=== PATIENT | male | born 1945 | race Caucasian/White ===

== ENCOUNTER → 2016-11-03 | Outpatient (CLI) | payer MEDICARE, BC ==
[2016-11-03 09:29] LABS: CHLORIDE,CL 108 mmol/L (98-110); SODIUM,NA 143 mmol/L (136-146)
== END ==
LOC: MW.CHFP 08:44
PROVIDERS: ATTEND Family Medicine
DX: I10 Essential (primary) hypertension (principal); D50.9 Iron deficiency anemia, unspecified; I50.9 Heart failure, unspecified; M79.669 Pain in unspecified lower leg
CPT/HCPCS: 36415; 80048; 82550; 83540; 83735; 85027; G0463

== ENCOUNTER → 2016-11-06 | Outpatient (CLI) | payer MEDICARE, BC ==
--- NOTE | 2016-11-09 10:30 | US ---
EXAMINATION: YORDY HISTORY: Peripheral vascular disease COMPARISON: None TECHNIQUE: Pressures obtained in the upper and lower extremities bilaterally. FINDINGS/IMPRESSION: The left YORDY is normal and greater than 1. The right YORDY is normal and greater than 1.
== END ==
LOC: MW.US 12:48
PROVIDERS: ATTEND Family Medicine
DX: I73.9 Peripheral vascular disease, unspecified (principal)
CPT/HCPCS: 93922; 93922-26

== ENCOUNTER 2021-03-22 09:06 | Inpatient (IN) | payer MEDICARE, BC ==
[2021-03-22] MEDS ORDERED: Lactated Ringers 1,000 ML IV ONE (09:54)
[2021-03-22] MEDS ORDERED: Morphine 4 MG/ML Syringe IVPUSH ONE (09:54)
[2021-03-22 10:05] LABS: CARBON DIOXIDE,CO2 28.7 mmol/L (21.0-32.0)
--- NOTE | 2021-03-22 10:25 | PCM.EKG ---
#1 Interpretation EKG Date: 03/22/21 Time: 10:03 Rhythm: NSR Rate (Beats/Min): 80 Pierce: Normal P-Wave: Present QRS: Normal ST-T: Normal QT: Prolonged (531) Comparison: No Change (12/19/15) EKG Interpretation Comments: Sinus Rhythm with prolong QT
--- NOTE | 2021-03-22 11:07 | CT ---
Indication: Abdominal pain. Comparison: None available. Technique: CT of the abdomen and pelvis with intravenous contrast. Findings: There is a blind-ending structure surrounded by marked inflammation and fluid, with severe wall thickening and focal pneumatosis seen in the lower mid abdomen likely representing a severe potentially perforated appendicitis, with an 8 mm appendicolith. A drainable well confined abscesses not present. No bowel obstruction. 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 No portal venous gas. There is mosaic attenuation in the lung bases, relatively mild. Eventration of the left hemidiaphragm. The spleen is normal in size. Non cirrhotic morphology to the liver without a suspicious liver lesion. The gallbladder appears unremarkable. Motion limits evaluation overall but no obvious pancreatic abnormality. Atherosclerotic changes seen within the abdominal aorta. The proximal visceral arteries appear patent. Right renal cyst. No hydronephrosis in either kidney. The urinary bladder is grossly unremarkable. The prostate is mildly enlarged. There is mild asymmetry in the soft tissue involving the right seminal vesicle. No obvious pelvic sidewall lymphadenopathy. Multilevel advanced degenerative changes of the lumbar spine. Impression: 1. Acute severe appendicitis, likely complicated by focal perforation given the pneumatosis in the severely thickened wall the appendix and the surrounding fluid although no drainable abscess is seen. 2. 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 3. Prostate enlargement with asymmetry involving the right seminal vesicle. Correlate with PSA and consider KENNEDY in the non urgent setting. Please note that all CT scans at this facility use dose modulation, iterative reconstruction, and/or weight-based dosing when appropriate to reduce radiation dose to as low as reasonably achievable. Dictated by Sonny Bowers MD @ 03/22/2021 11:05:39 AM (Electronically Signed)
[2021-03-22] MEDS ORDERED: Piperacillin/Tazobactam 4.5 GM in Sodium Chloride 0.9% 100 ML IV ONE (11:13)
[2021-03-22] MEDS ORDERED: Lactated Ringers 1,000 ML IV SCH ×3 (11:15→19:00)
[2021-03-22] MEDS ORDERED: Bupivacaine 0.5% 30 ML SDV ONE (12:35)
[2021-03-22] MEDS ORDERED: Octyl 2-Cyanoacrylate 1 Tube ONE (12:35)
[2021-03-22] MEDS ORDERED: Rocuronium Bromide 50 MG/5 ML Syringe ONE ×2 (12:36→14:40)
[2021-03-22] MEDS ORDERED: Lidocaine 2% 5 ML SDV ONE (12:36)
[2021-03-22] MEDS ORDERED: Sugammadex Sodium 200 MG/2 ML VIAL ONE (12:36)
[2021-03-22] MEDS ORDERED: fentaNYL 100 MCG/2 ML SDV ONE ×2 (12:36→14:14)
[2021-03-22] MEDS ORDERED: Propofol 200 MG/20 ML SDV ONE (12:36)
[2021-03-22] MEDS ORDERED: Dexamethasone 4 MG/ML 5 ML MDV ONE (12:36)
[2021-03-22] MEDS ORDERED: Ondansetron 4 MG/2 ML SDV ONE (12:36)
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
[2021-03-22] MEDS ORDERED: ePHEDrine 50 MG/ML SDV ONE (13:57)
[2021-03-22] MEDS ORDERED: Sodium Chloride 0.9% 20 ML ONE (13:58)
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
[2021-03-22] MEDS ORDERED: Morphine 2 MG/ML SYRINGE IVPUSH PRN (14:28)
[2021-03-22] MEDS ORDERED: Ondansetron 4 MG/2 ML SDV IVPUSH PRN ×2 (14:28→15:45)
[2021-03-22] MEDS ORDERED: HYDROmorphone 1 MG/ML Syringe IVPUSH PRN ×2 (14:28→15:45)
[2021-03-22] MEDS ORDERED: Albuterol 0.083% 2.5 MG/3 ML Neb Soln NEB PRN (14:28)
[2021-03-22] MEDS ORDERED: Metoclopramide 10 MG/2 ML SDV IVPUSH PRN (14:28)
[2021-03-22] MEDS ORDERED: Naloxone 0.4 MG/ML SDV IVPUSH PRN (14:28)
[2021-03-22] MEDS ORDERED: fentaNYL 100 MCG/2 ML SDV IVPUSH PRN (14:28)
--- NOTE | 2021-03-22 15:45 | PCM.OPNOTE ---
- General Post-Op/Procedure Note Date of Surgery/Procedure: 03/22/21 Operative Procedure(s): Laparoscopic appendectomy Findings: Contained perforated appendix dictation number [id number] Pre Op Diagnosis: Perforated appendicitis Post-Op Diagnosis: Contained perforated appendix Primary Surgeon: Ryan Busby Pathology: appendix EBL in mLs: 10 Complications: None Condition: Fair
[2021-03-22] MEDS ORDERED: Piperacillin/Tazobactam 2.25 GM in Sodium Chloride 0.9% 50 ML IV SCH (16:00)
[2021-03-22] MEDS ORDERED: Acetaminophen 1,000 MG in Premix Bag 1 BAG IV SCH (16:00)
--- NOTE | 2021-03-22 16:01 | PCM.POSTAN ---
POST ANESTHESIA ASSESSMENT - MENTAL STATUS Mental Status: Alert, Oriented - VITAL SIGNS Vital Signs: Last Vital Signs Temp 98.6 F 03/22/21 15:45 Pulse 66 03/22/21 15:51 Resp 15 03/22/21 15:51 BP 115/59 L 03/22/21 15:51 Pulse Ox 94 L 03/22/21 15:51 - RESPIRATORY Respiratory Status: Respiratory Rate WNL, Airway Patent, O2 Saturation Stable, Supplemental Oxygen - CARDIOVASCULAR CV Status: Pulse Rate WNL, Blood Pressure Stable - GASTROINTESTINAL GI Status: No Symptoms - PAIN Pain Score: 0 - POST OP HYDRATION Hydration Status: Adequate & Stable
--- NOTE | 2021-03-22 16:09 | PCM48HPAN ---
Post Anesthesia Note - EVALUATION WITHIN 48HRS OF ANESTHETIC Vital Signs in Normal Range: Yes Patient Participated in Evaluation: Yes Respiratory Function Stable: Yes Airway Patent: Yes Cardiovascular Function Stable: Yes Hydration Status Stable: Yes Pain Control Satisfactory: Yes Nausea and Vomiting Control Satisfactory: Yes Mental Status Recovered: Yes Vital Signs: Last Vital Signs Temp 98.6 F 03/22/21 15:45 Pulse 73 03/22/21 16:05 Resp 18 03/22/21 16:05 BP 121/67 03/22/21 16:05 Pulse Ox 95 03/22/21 16:05
--- NOTE | 2021-03-22 17:43 | EDM.PDOC ---
ED HPI GENERAL MEDICAL PROBLEM - General Chief Complaint: Abdominal Pain Stated Complaint: PAIN IN STOMACH X4 DAYS/CANT EAT ANYTHING SOLID Time Seen by Provider: 03/22/21 09:46 - History of Present Illness INITIAL COMMENTS - FREE TEXT/NARRATIVE: CHIEF COMPLAINT(S): Abdominal pain HISTORY OF PRESENT ILLNESS: This is a 75-year-old man with a past medical history of hypertension, BPH, hyperlipidemia, CHF who comes to the emergency department with a chief complaint of abdominal pain. The patient states that for approximately 3 days now he has been experiencing abdominal pain which he describes as around his bellybutton. He states that it has not really sharp or really dull is just medium pain. He currently rates his pain as 10 out of 10 without any radiation. He denies any nausea, vomiting, diarrhea, hematochezia, melena, hematemesis or bilious emesis. He states that he took aspirin and Tylenol which initially helped but has not helped since then. He denies any fevers or chills. He states that the pain is worsening when he goes from a sitting to a standing position and denies any relieving factors. He denies any chest pain, shortness of breath. REVIEW OF SYSTEMS: Constitutional: Denies fever, chills. Eyes: Denies eye pain Ears, Nose, Mouth, & Throat: Denies earache Cardiovascular: Denies chest pain Respiratory: Denies shortness of breath Gastrointestinal: Positive for abdominal pain. Denies Nausea, vomiting, diarrhea, hematochezia. Genitourinary: Denies hematuria Skin:Denies a rash MSK: Denies joint pain Neurological: Denies blurred vision Psychiatric: Denies depression PAST MEDICAL HISTORY: As per history of present illness and as reviewed below otherwise noncontributory. SURGICAL HISTORY: As per history of present illness and as reviewed below otherwise noncontributory. SOCIAL HISTORY: As per history of present illness and as reviewed below otherwise noncontributory. FAMILY HISTORY: As per history of present illness and as reviewed below otherwise noncontributory. EXAMINATION OF ORGAN SYSTEMS/BODY AREAS: Constitutional: Blood pressure is 151/76, heart rate 90, respiratory rate 18 with an oxygen saturation of 94% on room air. Temperature 36.7 General: Elderly man who is in no acute distress Psychiatric: Appropriate mood and affect. Eyes: No scleral icterus or conjunctival erythema ENMT: Moist mucous membranes. No pharyngeal erythema Cardiovascular: Regular, rate, and rhythm. No gallops, murmurs, or rubs. Bilateral upper extremity pulses symmetric and intact. No peripheral edema. No JVD. Respiratory: Lungs clear to auscultation bilaterally. No wheezes, rales, or rhonchi. Gastrointestinal: Soft, diffusely tender to palpation, nondistended. No rebound or guarding. Negative Chavarria's and McBurney's. Normoactive bowel sounds Genitourinary: No suprapubic tenderness Musculoskeletal: Normal range of motion. Skin: No lesions or abrasions. Neurological: Alert, GCS 15 MEDICAL DECISION MAKING AND COURSE IN THE ED WITH INTERPRETATION/REVIEW OF DIAGNOSTIC STUDIES: This is a 75-year-old man with a past medical history of hypertension, BPH, hyperlipidemia and CHF who comes to the emergency department with acute abdominal pain who has normal otherwise vital signs. At this time we will provide the patient with 1 L of lactated Ringer's bolus, 4 mg of IV morphine and obtain a CT abdomen pelvis with contrast for further evaluation. Will obtain labs including CBC, CMP, Covid, lipase, magnesium, troponin, BNP and an EKG. We will place patient on cardiac monitoring and pulse oximetry. Differential includes gastroenteritis, appendicitis, diverticulitis, pancreatitis. Laboratory: CBC reveals a leukocytosis of 15.09 with neutrophilic predominance without any left shift. Thrombocytopenia at 142. CMP is unremarkable except for mild elevation in bilirubin at 2.9. Lipase is normal. Troponin is negative. BNP is normal. Covid is negative. After labs given the leukocytosis I did order blood cultures, lactic acid. At this time we do not have a specific diagnosis therefore we will hold off on antibiotics at this time. We will hold off on 30 cc/kg at this time as the patient does not meet severe sepsis criteria and his blood pressure is normal. We will reevaluate after lactic acid. The radiological images were viewed by myself along with reading the report from the radiologist. CT abdomen pelvis with contrast reveals an acute severe appendicitis likely complicated by focal perforation given the pneumatosis in the severely thickened wall of the appendix and the surrounding fluid. No drainable abscess seen. 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 After imaging the patient's laboratory analysis had resulted and his lactic acid is normal. At this time no further fluid administration will be provided. We will start the patient on Zosyn given the perforated appendicitis. I contacted Dr. Busby who stated that he would come and evaluate the patient. I did discuss the results with the patient. He was amenable to evaluation by surgeon for definitive management. Dr. Busby did come and evaluate the patient and the patient will be admitted to the hospital and will be taken to the operating room. DISPOSITION: Patient was admitted to the hospital in stable condition CONDITION: Serious PROCEDURES: None FINAL IMPRESSION(S)/DIAGNOSES: 1. Acute perforated appendicitis Randell Vail M.D. lower abdomen Pain Score (Numeric/FACES): 10 - Related Data Allergies Allergy/AdvReac Type Severity Reaction Status Date / Time No Known Allergies Allergy Verified 03/22/21 09:25 Home Meds: Home Meds Furosemide [Lasix] 40 mg PO DAILY 10/16/13 [History] Potassium Chloride 10 meq PO DAILY 10/16/13 [History] Tamsulosin [Flomax] 0.4 mg PO DAILY 10/16/13 [History] Finasteride 5 mg PO DAILY 09/09/15 [History] Aspirin [[place] Aspirin] 81 mg PO DAILY 02/17/16 [History] Losartan Potassium 25 mg PO DAILY 03/22/21 [History] atorvaSTATin [Lipitor] 20 mg PO DAILY 03/22/21 [History] Past Medical History HEENT History: Reports: Impaired Vision Other HEENT History: wears glasses Cardiovascular History: Reports: CAD, Heart Failure, High Cholesterol, Hypertension Other Cardiovascular History: states had chest pain for 2 weeks after a stress test, not since Respiratory History: Reports: Asthma Other Respiratory History: walk a mile 5 days per week Gastrointestinal History: Reports: Colon Polyp, Helicobacter Pylori Other Gastrointestinal History: hx gastric ulcer, Genitourinary History: Reports: BPH, Prostate Disorder Musculoskeletal History: Reports: Arthritis, Fracture Other Musculoskeletal History: injury to L shoulder in 1972, see HPI Neurological History: Reports: None Psychiatric History: Reports: None Endocrine/Metabolic History: Reports: Obesity/BMI 30+ Hematologic History: Reports: Anemia Other Hematologic History: new onset of anemia Immunologic History: Reports: None Oncologic (Cancer) History: Reports: None Other Oncologic History: hx tubular adenoma of colon Dermatologic History: Reports: None - Infectious Disease History Infectious Disease History: Reports: None - Past Surgical History Head Surgeries/Procedures: Reports: None HEENT Surgical History: Reports: None Cardiovascular Surgical History: Reports: None Respiratory Surgical History: Reports: None GI Surgical History: Reports: Colonoscopy, EGD, Hernia, Inguinal Male Surgical History: Reports: None Endocrine Surgical History: Reports: None Neurological Surgical History: Reports: None Musculoskeletal Surgical History: Reports: Shoulder Surgery Other Musculoskeletal Surgeries/Procedures:: ORIF right ankle and left clavicle fractures Oncologic Surgical History: Reports: None Social & Family History - Family History Family Medical History: No Pertinent Family History - Tobacco Use Tobacco Use Status *Q: Former Tobacco User Used Tobacco, but Quit: Yes Month/Year Tobacco Last Used: 1987 - Caffeine Use Caffeine Use: Reports: None - Recreational Drug Use Recreational Drug Use: No ED ROS GENERAL - Review of Systems Review Of Systems: See Below ED EXAM, GENERAL - Physical Exam Exam: See Below Course - Vital Signs Last Recorded V/S: Last Vital Signs Temp 36.6 C 03/22/21 17:30 Pulse 68 03/22/21 19:00 Resp 18 03/22/21 19:00 BP 144/88 H 03/22/21 19:00 Pulse Ox 96 03/22/21 19:00 - Orders/Labs/Meds Orders: Active Orders 24 hr Category Date Time Status Admission Status [Patient Status] [ADT] Stat ADT 03/22/21 12:19 Active CULTURE BLOOD [BC] Stat Lab 03/22/21 11:30 Received CULTURE BLOOD [BC] Stat Lab 03/22/21 12:30 Results Lactated Ringers [Ringers, Lactated] 1,000 ml Med 03/22/21 11:15 Active IV ASDIRECTED Blood Culture x2 Reflex Set [OM.PC] Stat Oth 03/22/21 11:11 Ordered Pulse Oximetry Continuous Monitoring [OM.PC] Routine Oth 03/22/21 14:29 Ordered Medication Orders Hydrocodone Bitart/Acetaminophen (Acetaminophen/Hydrocodone 325-5 Mg Tab) 1 tab PO Q4H PRN PRN Reason: Pain (moderate 4-6) Atorvastatin Calcium (Atorvastatin 20 Mg Tab) 20 mg PO DAILY DANIEL Finasteride (Finasteride 5 Mg Tab) 5 mg PO DAILY DANIEL Furosemide (Furosemide 20 Mg Tab) 40 mg PO DAILY DANIEL Hydromorphone HCl (Hydromorphone 1 Mg/Ml Syringe) 0.5 mg IVPUSH Q1H PRN PRN Reason: Pain (severe 7-10) Lactated Ringer's (Ringers, Lactated) 1,000 mls @ 150 mls/hr IV ASDIRECTED DANIEL Last Admin: 03/22/21 12:04 Dose: 150 mls/hr Documented by: BELLA Acetaminophen 1,000 mg/ Premix 100 mls @ 400 mls/hr IV Q8H DANIEL Piperacillin Sod/Tazobactam (Sod 2.25 gm/ Sodium Chloride) 50 mls @ 100 mls/hr IV Q6H DANIEL Last Admin: 03/22/21 19:50 Dose: 100 mls/hr Documented by: NAEEM Lactated Ringer's (Ringers, Lactated) 1,000 mls @ 60 mls/hr IV ASDIRECTED [facility] Last Admin: 03/22/21 19:01 Dose: 60 mls/hr Documented by: GUY Losartan Potassium (Losartan 50 Mg Tab) 25 mg PO DAILY [facility] Ondansetron HCl (Ondansetron 4 Mg/2 Ml Sdv) 4 mg IVPUSH Q6H PRN PRN Reason: Nausea/Vomiting Tamsulosin HCl (Tamsulosin 0.4 Mg Cap.Er) 0.4 mg PO DAILY [facility] Labs: Laboratory Tests 03/22/21 03/22/21 03/22/21 Range/Units 09:29 09:29 09:29 WBC 15.09 H (4.0-11.0) K/uL RBC 5.04 (4.50-5.90) M/uL Hgb 14.7 (13.0-17.0) g/dL Hct 43.5 (38.0-50.0) % MCV 86.3 (80.0-98.0) fL MCH 29.2 (27.0-32.0) pg MCHC 33.8 (31.0-37.0) g/dL RDW Std Deviation 44.6 (28.0-62.0) fl RDW Coeff of Evelio 14 (11.0-15.0) % Plt Count 142 L (150-400) K/uL MPV 10.80 (7.40-12.00) fL Neut % (Auto) 87.2 H (48.0-80.0) % Lymph % (Auto) 4.1 L (16.0-40.0) % Sierra % (Auto) 8.5 (0.0-15.0) % Eos % (Auto) 0.1 (0.0-7.0) % Baso % (Auto) 0.1 (0.0-1.5) % Neut # (Auto) 13.2 H (1.4-5.7) K/uL Lymph # (Auto) 0.6 (0.6-2.4) K/uL Sierra # (Auto) 1.3 H (0.0-0.8) K/uL Eos # (Auto) 0.0 (0.0-0.7) K/uL Baso # (Auto) 0.0 (0.0-0.1) K/uL Nucleated RBC % 0.0 /100WBC Nucleated RBCs # 0 K/uL Sodium 137 (136-148) mmol/L Potassium 4.0 (3.5-5.1) mmol/L Chloride 100 (98-107) mmol/L Carbon Dioxide 28.7 (21.0-32.0) mmol/L BUN 18 (7.0-18.0) mg/dL Creatinine 1.3 (0.8-1.3) mg/dL Est Cr Clr Drug Dosing 39.85 mL/min Estimated GFR (MDRD) 53.5 ml/min Glucose 133 H (74-106) mg/dL Lactic Acid (0.4-2.0) mmol/L Calcium 8.2 L (8.5-10.1) mg/dL Magnesium 1.9 (1.8-2.4) mg/dL Total Bilirubin 2.9 H (0.2-1.0) mg/dL AST 25 (15-37) IU/L ALT 32 (14-63) IU/L Alkaline Phosphatase 108 (46-116) U/L Troponin I < 0.050 (0.000-0.056) ng/mL B-Natriuretic Peptide (<100) PG/ML Total Protein 6.8 (6.4-8.2) g/dL Albumin 3.7 (3.4-5.0) g/dL Globulin 3.1 (2.6-4.0) g/dL Albumin/Globulin Ratio 1.2 (0.9-1.6) Lipase 47 L (73-393) U/L SARS-CoV-2 RNA (MOJGAN) (NEGATIVE) Blood Type Antibody Screen 03/22/21 03/22/21 03/22/21 Range/Units 09:29 10:15 11:30 WBC (4.0-11.0) K/uL RBC (4.50-5.90) M/uL Hgb (13.0-17.0) g/dL Hct (38.0-50.0) % MCV (80.0-98.0) fL MCH (27.0-32.0) pg MCHC (31.0-37.0) g/dL RDW Std Deviation (28.0-62.0) fl RDW Coeff of Evelio (11.0-15.0) % Plt Count (150-400) K/uL MPV (7.40-12.00) fL Neut % (Auto) (48.0-80.0) % Lymph % (Auto) (16.0-40.0) % Sierra % (Auto) (0.0-15.0) % Eos % (Auto) (0.0-7.0) % Baso % (Auto) (0.0-1.5) % Neut # (Auto) (1.4-5.7) K/uL Lymph # (Auto) (0.6-2.4) K/uL Sierra # (Auto) (0.0-0.8) K/uL Eos # (Auto) (0.0-0.7) K/uL Baso # (Auto) (0.0-0.1) K/uL Nucleated RBC % /100WBC Nucleated RBCs # K/uL Sodium (136-148) mmol/L Potassium (3.5-5.1) mmol/L Chloride (98-107) mmol/L Carbon Dioxide (21.0-32.0) mmol/L BUN (7.0-18.0) mg/dL Creatinine (0.8-1.3) mg/dL Est Cr Clr Drug Dosing mL/min Estimated GFR (MDRD) ml/min Glucose (74-106) mg/dL Lactic Acid 0.8 (0.4-2.0) mmol/L Calcium (8.5-10.1) mg/dL Magnesium (1.8-2.4) mg/dL Total Bilirubin (0.2-1.0) mg/dL AST (15-37) IU/L ALT (14-63) IU/L Alkaline Phosphatase (46-116) U/L Troponin I (0.000-0.056) ng/mL B-Natriuretic Peptide 54 (<100) PG/ML Total Protein (6.4-8.2) g/dL Albumin (3.4-5.0) g/dL Globulin (2.6-4.0) g/dL Albumin/Globulin Ratio (0.9-1.6) Lipase (73-393) U/L SARS-CoV-2 RNA (MOJGAN) NEGATIVE (NEGATIVE) Blood Type Antibody Screen 03/22/21 Range/Units 11:30 WBC (4.0-11.0) K/uL RBC (4.50-5.90) M/uL Hgb (13.0-17.0) g/dL Hct (38.0-50.0) % MCV (80.0-98.0) fL MCH (27.0-32.0) pg MCHC (31.0-37.0) g/dL RDW Std Deviation (28.0-62.0) fl RDW Coeff of Evelio (11.0-15.0) % Plt Count (150-400) K/uL MPV (7.40-12.00) fL Neut % (Auto) (48.0-80.0) % Lymph % (Auto) (16.0-40.0) % Sierra % (Auto) (0.0-15.0) % Eos % (Auto) (0.0-7.0) % Baso % (Auto) (0.0-1.5) % Neut # (Auto) (1.4-5.7) K/uL Lymph # (Auto) (0.6-2.4) K/uL Sierra # (Auto) (0.0-0.8) K/uL Eos # (Auto) (0.0-0.7) K/uL Baso # (Auto) (0.0-0.1) K/uL Nucleated RBC % /100WBC Nucleated RBCs # K/uL Sodium (136-148) mmol/L Potassium (3.5-5.1) mmol/L Chloride (98-107) mmol/L Carbon Dioxide (21.0-32.0) mmol/L BUN (7.0-18.0) mg/dL Creatinine (0.8-1.3) mg/dL Est Cr Clr Drug Dosing mL/min Estimated GFR (MDRD) ml/min Glucose (74-106) mg/dL Lactic Acid (0.4-2.0) mmol/L Calcium (8.5-10.1) mg/dL Magnesium (1.8-2.4) mg/dL Total Bilirubin (0.2-1.0) mg/dL AST (15-37) IU/L ALT (14-63) IU/L Alkaline Phosphatase (46-116) U/L Troponin I (0.000-0.056) ng/mL B-Natriuretic Peptide (<100) PG/ML Total Protein (6.4-8.2) g/dL Albumin (3.4-5.0) g/dL Globulin (2.6-4.0) g/dL Albumin/Globulin Ratio (0.9-1.6) Lipase (73-393) U/L SARS-CoV-2 RNA (MOJGAN) (NEGATIVE) Blood Type A POSITIVE Antibody Screen NEGATIVE Meds: Medications Generic Name Dose Route Start Last Admin Trade Name Freq PRN Reason Stop Dose Admin Hydrocodone Bitart/Acetaminophen 1 tab 03/22/21 15:45 Acetaminophen/Hydrocodone 325-5 Mg Tab PO Q4H PRN Pain (moderate 4-6) Atorvastatin Calcium 20 mg 03/23/21 09:00 Atorvastatin 20 Mg Tab PO DAILY DANIEL Finasteride 5 mg 03/23/21 09:00 Finasteride 5 Mg Tab PO DAILY DANIEL Furosemide 40 mg 03/23/21 09:00 Furosemide 20 Mg Tab PO DAILY DANIEL Hydromorphone HCl 0.5 mg 03/22/21 15:45 Hydromorphone 1 Mg/Ml Syringe IVPUSH Q1H PRN Pain (severe 7-10) Lactated Ringer's 1,000 mls @ 150 mls/hr 03/22/21 11:15 03/22/21 12:04 Ringers, Lactated IV 150 mls/hr ASDIRECTED DANIEL Administration Acetaminophen 1,000 mg/ Premix 100 mls @ 400 mls/hr 03/22/21 22:00 IV Q8H DANIEL Piperacillin Sod/Tazobactam 50 mls @ 100 mls/hr 03/22/21 20:00 03/22/21 19:50 Sod 2.25 gm/ Sodium Chloride IV 100 mls/hr Q6H DANIEL Administration Lactated Ringer's 1,000 mls @ 60 mls/hr 03/22/21 19:00 03/22/21 19:01 Ringers, Lactated IV 60 mls/hr ASDIRECTED DANIEL Administration Losartan Potassium 25 mg 03/23/21 09:00 Losartan 50 Mg Tab PO DAILY DANIEL Ondansetron HCl 4 mg 03/22/21 15:45 Ondansetron 4 Mg/2 Ml Sdv IVPUSH Q6H PRN Nausea/Vomiting Tamsulosin HCl 0.4 mg 03/23/21 09:00 Tamsulosin 0.4 Mg Cap.Er PO DAILY DANIEL Discontinued Medications Generic Name Dose Route Start Last Admin Trade Name Freq PRN Reason Stop Dose Admin Albuterol 2.5 mg 03/22/21 14:28 Albuterol 0.083% 2.5 Mg/3 Ml Neb Soln NEB ONETIME PRN Wheezing Bupivacaine HCl Confirm 03/22/21 12:35 Bupivacaine 0.5% 30 Ml Sdv Administered 03/22/21 12:36 Dose 30 ml .ROUTE .STK-MED ONE Dexamethasone Confirm 03/22/21 12:36 Dexamethasone 4 Mg/Ml 5 Ml Mdv Administered 03/22/21 12:37 Dose 20 mg .ROUTE .STK-MED ONE Droperidol 0.625 mg 03/22/21 14:28 Droperidol 5 Mg/2 Ml Sdv IVPUSH ONETIME PRN Nausea/Vomiting Ephedrine Sulfate Confirm 03/22/21 13:57 Ephedrine 50 Mg/Ml Sdv Administered 03/22/21 13:58 Dose 50 mg .ROUTE .STK-MED ONE Fentanyl Confirm 03/22/21 12:36 Fentanyl 100 Mcg/2 Ml Sdv Administered 03/22/21 12:37 Dose 100 mcg .ROUTE .STK-MED ONE Fentanyl Confirm 03/22/21 14:14 Fentanyl 100 Mcg/2 Ml Sdv Administered 03/22/21 14:15 Dose 100 mcg .ROUTE .STK-MED ONE Fentanyl 50 mcg 03/22/21 14:28 Fentanyl 100 Mcg/2 Ml Sdv IVPUSH Q5M PRN Pain (mild 1-3) Hydromorphone HCl 1 mg 03/22/21 14:28 Hydromorphone 1 Mg/Ml Syringe IVPUSH Q10M PRN Pain (moderate 4-6) Lactated Ringer's 1,000 mls @ 999 mls/hr 03/22/21 09:54 03/22/21 10:03 Ringers, Lactated IV 03/22/21 10:54 999 mls/hr .BOLUS ONE Administration Piperacillin Sod/Tazobactam 100 mls @ 100 mls/hr 03/22/21 11:13 03/22/21 12:03 Sod 4.5 gm/ Sodium Chloride IV 03/22/21 12:12 100 mls/hr ONETIME ONE Administration Sodium Chloride Confirm 03/22/21 13:58 Normal Saline Administered 03/22/21 13:59 Dose 20 mls @ as directed .ROUTE .STK-MED ONE Acetaminophen Confirm 03/22/21 14:57 Ofirmev 1000 Mg/100 Ml Administered 03/22/21 14:58 Dose 100 mls @ as directed .ROUTE .STK-MED ONE Lactated Ringer's 1,000 mls @ 125 mls/hr 03/22/21 15:45 Ringers, Lactated IV ASDIRECTED DANIEL Iopamidol 100 ml 03/22/21 19:16 03/22/21 19:17 Iopamidol 755 Mg/Ml 500 Ml Multipack Bottle IVPUSH 03/22/21 19:17 100 ml ONETIME STA Administration Lidocaine Confirm 03/22/21 12:36 Lidocaine 2% 5 Ml Sdv Administered 03/22/21 12:37 Dose 5 ml .ROUTE .STK-MED ONE Metoclopramide HCl 10 mg 03/22/21 14:28 Metoclopramide 10 Mg/2 Ml Sdv IVPUSH ONETIME PRN Nausea/Vomiting Morphine Sulfate 4 mg 03/22/21 09:54 03/22/21 10:03 Morphine 4 Mg/Ml Syringe IVPUSH 03/22/21 09:55 4 mg ONETIME ONE Administration Morphine Sulfate 2 mg 03/22/21 14:28 Morphine 2 Mg/Ml Syringe IVPUSH Q10M PRN Pain (severe 7-10) Naloxone HCl 0.1 mg 03/22/21 14:28 Naloxone 0.4 Mg/Ml Sdv IVPUSH ASDIRECTED PRN Respiratory Depression Octyl Cyanoacrylate Confirm 03/22/21 12:35 Octyl 2-Cyanoacrylate 1 Tube Administered 03/22/21 12:36 Dose 1 applic .ROUTE .STK-MED ONE Ondansetron HCl Confirm 03/22/21 12:36 Ondansetron 4 Mg/2 Ml Sdv Administered 03/22/21 12:37 Dose 4 mg .ROUTE .STK-MED ONE Ondansetron HCl 4 mg 03/22/21 14:28 Ondansetron 4 Mg/2 Ml Sdv IVPUSH ONETIME PRN Nausea/Vomiting Propofol Confirm 03/22/21 12:36 Propofol 200 Mg/20 Ml Sdv Administered 03/22/21 12:37 Dose 200 mg .ROUTE .STK-MED ONE Rocuronium [place] Confirm 03/22/21 12:36 Rocuronium [place] 50 Mg/5 Ml Syringe Administered 03/22/21 12:37 Dose 50 mg .ROUTE .STK-MED ONE Rocuronium [place] Confirm 03/22/21 14:40 Rocuronium [place] 50 Mg/5 Ml Syringe Administered 03/22/21 14:41 Dose 50 mg .ROUTE .STK-MED ONE Sugammadex Sodium Confirm 03/22/21 12:36 Sugammadex Sodium 200 Mg/2 Ml Vial Administered 03/22/21 12:37 Dose 200 mg .ROUTE .STK-MED ONE Departure - Departure Time of Disposition: 12:19 Disposition: Still A Patient 30 Condition: Serious Clinical Impression: Appendicitis - Discharge Information *PRESCRIPTION DRUG MONITORING PROGRAM REVIEWED*: No *COPY OF PRESCRIPTION DRUG MONITORING REPORT IN PATIENT WILMAR: No Sepsis Event Note (ED) - Evaluation Sepsis Screening Result: Possible Sepsis Risk - Focused Exam Vital Signs: Vital Signs Temp Pulse Resp BP Pulse Ox 03/22/21 13:14 70 18 124/65 90 L 03/22/21 12:14 84 18 134/69 90 L 03/22/21 11:14 64 18 132/73 96 03/22/21 09:23 36.7 C 90 18 151/76 H 94 L - My Orders Last 24 Hours: My Active Orders 03/22/21 11:11 Blood Culture x2 Reflex Set [OM.PC] Stat 03/22/21 11:15 Lactated Ringers [Ringers, Lactated] 1,000 ml IV ASDIRECTED 03/22/21 11:30 CULTURE BLOOD [BC] Stat 03/22/21 12:19 Admission Status [Patient Status] [ADT] Stat 03/22/21 12:30 CULTURE BLOOD [BC] Stat - Assessment/Plan Last 24 Hours: My Active Orders 03/22/21 11:11 Blood Culture x2 Reflex Set [OM.PC] Stat 03/22/21 11:15 Lactated Ringers [Ringers, Lactated] 1,000 ml IV ASDIRECTED 03/22/21 11:30 CULTURE BLOOD [BC] Stat 03/22/21 12:19 Admission Status [Patient Status] [ADT] Stat 03/22/21 12:30 CULTURE BLOOD [BC] Stat
[2021-03-22] MEDS ORDERED: Iopamidol 755 MG/ML 500 ML Multipack Bottle IVPUSH STA (19:16)
--- NOTE | 2021-03-22 19:46 | OR ---
SURGEON: SRAVANTHI HENRY MD DATE OF PROCEDURE: 03/22/2021 PREOPERATIVE DIAGNOSIS: Perforated appendicitis. POSTOPERATIVE DIAGNOSIS: Contained perforated appendicitis. PRIMARY SURGEON: Sravanthi Henry MD ANESTHESIA: General. ESTIMATED BLOOD LOSS: 10. PROCEDURE PERFORMED: Laparoscopic appendectomy. COMPLICATIONS: None. REASON FOR PROCEDURE: The patient is a pleasant 75-year-old gentleman who about 4 days ago started having abdominal pain, got worse until yesterday. Last night, it got a little better, but then this morning, it was back again. He had a CT scan that showed thick dilated tubular structure that looked like the appendix with signs of perforation with some pneumatosis and elevated white cell count. I did go over with the patient risks, goals, and alternatives of procedure. Risks included but were not limited to bleeding, infection, abscess formation, injury to underlying structures, or need to convert to open. The patient understands, wishes to proceed. OPERATION NARRATIVE: The patient was brought back to the OR. He was prepped and draped in usual sterile fashion. He received antibiotics in the ER. A Hilario catheter was placed and anesthesia was provided by the Anesthesia team. After time-out was performed, the abdomen was again inspected. Now that he was relaxed, I could feel a more firm mass in the umbilical right lower quadrant. Now, a small incision was made underneath his umbilicus, and stalk of his umbilicus was grasped and slightly elevated. When this was elevated, the firmness seemed to go with it, so elected to move to left upper quadrant entering another small incision. Now, using a 5 mm trocar with an Optiview camera, I did go into the abdomen. Insufflation was began. Abdomen was inspected. No entry wound was seen. The patient did appear to have some tightly adhesed abdominal wall where the umbilicus was. Now, a 12 mm trocar was placed in the right lower abdomen. These adhesions were kind of bluntly dissected. It did appear that patient had a kind of preperitoneal fat going right around where his umbilicus was. This was again lightly attached to adhesions. These were brought down with a sweeping motion of the cecum and inflammatory mass went down. Because of the large amount of adipose right there at the umbilicus, I just placed another 5 mm trocar kind of more in the left upper abdomen. Now, attention was brought down to inflammatory area. Could see the tip of inflamed appendix. This was gently grasped and elevated. It was fairly friable; however, I did kind of resect out from its surrounding tissue. I did get into a small abscess where there was little purulent material was. This was suctioned out with very little spillage. The appendix was again carefully a blunt dissection carried out. I did find the base of the appendix to the cecum. Luckily this area was away from the abscess cavity and did not appear very inflamed. An opening was made at the base of the appendix. The mesoappendix was then taken with Harmonic scalpel. Again, dissection was slow because of the inflammation. Once the mesoappendix was freed, now a blue load linear stapler was placed at the base of the appendix where it looked like it was going into the cecum. Now, the appendix was removed in Endo Catch bag. There also appeared to be a fecalith with it. The operative site was again inspected. I did do some minimal suction and irrigation. There was good hemostasis. Staple line appeared intact. The rest of the abdomen was inspected. I did suction out the fluid in the pelvis. Overall, there did not appear to be any gross spillage or contamination, so a drain was not left. The patient's pelvis did bulge up. 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 Again, the abdomen was inspected. Good hemostasis. Now, the 12 mm trocar was removed, and the fascial defect was closed with the cone and 0 Vicryl. Pneumoperitoneum was released. All the trocars were now injected with the rest of the local. All the trocar spots and the infraumbilical incision were closed with 4-0 Monocryl and Dermabond. At the end of case, sponge and needle counts were correct. The patient was transferred to recovery room in stable condition. DEVON / ROMINA /[id number]
[2021-03-22] MEDS: Piperacillin/Tazobactam 2.25 GM in Sodium Chloride 0.9% 50 ML IV SCH (19:50)
[2021-03-22] MEDS: Acetaminophen 1,000 MG in Premix Bag 1 BAG IV SCH (22:17)
[2021-03-23] MEDS: Piperacillin/Tazobactam 2.25 GM in Sodium Chloride 0.9% 50 ML IV SCH ×4 (01:15→19:44)
[2021-03-23] MEDS: Acetaminophen/HYDROcodone 325-5 MG Tab PO PRN (01:24)
[2021-03-23] MEDS: Acetaminophen 1,000 MG in Premix Bag 1 BAG IV SCH (05:16)
[2021-03-23] MEDS: atorvaSTATin 20 MG Tab PO SCH (08:21)
[2021-03-23] MEDS: Finasteride 5 MG Tab PO SCH (08:21)
[2021-03-23] MEDS: Furosemide 20 MG Tab PO SCH (08:21)
[2021-03-23] MEDS: Losartan 50 MG Tab PO SCH (08:22)
[2021-03-23] MEDS: Tamsulosin 0.4 MG Cap.ER PO SCH (08:22)
[2021-03-23 08:26] LABS: CARBON DIOXIDE,CO2 29.2 mmol/L (21.0-32.0); POTASSIUM,K 4.2 mmol/L (3.5-5.1)
[2021-03-23] MEDS ORDERED: Sodium Chloride 0.9% 2.5 ML Syringe FLUSH PRN (09:58)
[2021-03-23] MEDS ORDERED: Sodium Chloride 0.9% 10 ML Syringe FLUSH PRN (09:58)
--- NOTE | 2021-03-23 11:13 | PN ---
SUBJECTIVE: The patient is resting comfortably in his bed. He has really no complaints. He says he feels pretty good. He says he has had some minimal abdominal discomfort; however, it is much improved from prior to the surgery. He says he has been up and walking. He has not passed any flatus yet, but he feels like he might soon. He says his appetite has come back. Now, he is hungry. He denies any nausea or vomiting. He has been up and ambulating. OBJECTIVE: GENERAL: He is resting comfortably in his bed. He is alert and oriented in no acute distress. VITAL SIGNS: Temperature is 97.7, pulse is 55, blood pressure is 159/80, and saturation 95% on 1 L of oxygen. ABDOMEN: Soft. He has minimal bloating. Still some minimal tenderness in the right lower mid abdomen but much improved from yesterday. EXTREMITIES: Edema in his bilateral legs is still there but less than yesterday. LABORATORY DATA: White cell count 10.81, hemoglobin 13.1, and platelet count is 130. Sodium is 136, potassium 4.2, BUN 18, creatinine 1.2, and glucose 159. A Hilario catheter is in place with light yellowish urine coming out. He has had almost 2.5 L out since operation. ASSESSMENT AND PLAN: The patient is a pleasant 75-year-old gentleman, postop day 1 from laparoscopic appendectomy for perforated appendicitis that had a small, contained abscess. The patient is doing better. His appetite is coming back. We will saline lock him today and advance his diet. I did go over with patient about the surgery. If he continues to improve, then he will most likely be home tomorrow. The patient is encouraged to walk and do incentive spirometry. I spoke to nursing staff, we will try to wean him off his oxygen. The patient is also encouraged to continue to use his incentive spirometry. I did speak with nursing staff. DEVON VANEGAS /[id number] KATHI
[2021-03-24] MEDS: Piperacillin/Tazobactam 2.25 GM in Sodium Chloride 0.9% 50 ML IV SCH ×2 (01:52→07:43)
[2021-03-24] MEDS: Acetaminophen/HYDROcodone 325-5 MG Tab PO PRN (05:29)
[2021-03-24 07:39] VITALS: PULSE 75
[2021-03-24] MEDS: Tamsulosin 0.4 MG Cap.ER PO SCH (08:54)
[2021-03-24] MEDS: Finasteride 5 MG Tab PO SCH (08:54)
[2021-03-24] MEDS: Furosemide 20 MG Tab PO SCH (08:54)
[2021-03-24] MEDS: atorvaSTATin 20 MG Tab PO SCH (08:54)
[2021-03-24] MEDS: Losartan 50 MG Tab PO SCH (08:55)
[2021-03-24 08:58] VITALS: BP 140/70
--- NOTE | 2021-03-25 07:01 | DISCH ---
DATE OF DISCHARGE: 03/24/2021 PRIMARY CARE PHYSICIAN: Gary Fowler M.D. PRIMARY DISCHARGE DIAGNOSIS: Acute perforated appendicitis. SECONDARY DISCHARGE DIAGNOSES: 1. Hypertension. 2. Congestive heart failure. 3. Hyperlipidemia. 4. BPH. PAST SURGICAL HISTORY: Laparoscopic appendectomy on 03/22/2021. DISCHARGE MEDICATIONS: 1. Lipitor 20 mg p.o. daily. 2. Flomax 0.4 mg p.o. daily. 3. Potassium 10 mEq p.o. daily. 4. Losartan 25 mg p.o. daily. 5. Lasix 40 mg p.o. daily. 6. Finasteride 5 mg p.o. daily. 7. Aspirin 81 mg p.o. daily. 8. Levofloxacin 750 mg p.o. daily. 9. [place] 5/325 one tablet p.o. q.6 hours p.r.n. REASON FOR ADMISSION: The patient is a pleasant 75-year-old gentleman who for several days was having lower abdominal pain. He came into the ER, was found to have appendicitis, likely perforated. The patient was admitted for laparoscopic appendectomy. HOSPITAL COURSE: The patient was taken back to the OR. He tolerated his laparoscopic appendectomy. At the surgery, he was found to have a perforated appendix with a very small abscess. Luckily, this had been all walled off. The patient tolerated the procedure well and was taken to the floor for recovery. The patient's recovery was unremarkable. His diet was advanced. At time of discharge, the patient tolerated diet. He was passing flatus, and his pain was controlled with medications. His white cell count had normalized, and he had been afebrile. The patient was feeling well and ready for discharge. DISCHARGE EXAMINATION: GENERAL: The patient is sitting comfortably in his bed. He is alert and oriented in no acute distress. VITAL SIGNS: Temperature 98.2, pulse is 75, blood pressure is 140/70, and saturating 94% on room air. ABDOMEN: Soft and nondistended. Incisions are all clean, dry, and intact. Dermabond in place. No signs of infection. Has a little bit of bruising on his umbilical incision. DISCHARGE INSTRUCTIONS: I did go over with the patient that he should take it easy for the next several days. No heavy lifting. He may walk. Patient may also shower. He has Dermabond, this will peel off in next couple of weeks. I did go over with the patient since it was a perforated small abscesses, we will give him 5 days of antibiotics. 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 The patient should follow up with me in 2 weeks. Sooner if he develops signs and symptoms such as erythema or drainage from incision, fevers, chills, or just is not feeling well. The patient should also follow up with his primary care provider. All of the patient's questions were answered. DEVON VANEGAS /[id number]
== END 2021-03-24 11:23 | disposition home or self-care (01) | DRG 340 ==
LOC: MW.ED 09:06 → MW.MS 14:35
PROVIDERS: ADMIT Surgery; ATTEND Surgery
PROC: 0DTJ4ZZ Resection of Appendix, Percutaneous Endoscopic Approach (ICD-10-PCS; principal; 2021-03-22)
DX: K35.32 Acute appendicitis with perforation, localized peritonitis, and gangrene, without abscess (principal); K35.33 Acute appendicitis with perforation, localized peritonitis, and gangrene, with abscess; I11.0 Hypertensive heart disease with heart failure; I50.9 Heart failure, unspecified; N40.0 Benign prostatic hyperplasia without lower urinary tract symptoms; E78.5 Hyperlipidemia, unspecified; I25.10 Atherosclerotic heart disease of native coronary artery without angina pectoris; E78.00 Pure hypercholesterolemia, unspecified; J45.909 Unspecified asthma, uncomplicated; Z20.822 Contact with and (suspected) exposure to COVID-19; D64.9 Anemia, unspecified; E66.9 Obesity, unspecified; Z79.82 Long term (current) use of aspirin; Z79.899 Other long term (current) drug therapy; Z87.891 Personal history of nicotine dependence; Z68.38 Body mass index [BMI] 38.0-38.9, adult
CPT/HCPCS: 36415; 74177; 80053; 83605; 83690; 83735; 83880; 84484; 85025; 86850; 86900; 86901; 87040 ×2; 93005; A9270; J1100; J2270; J2543; J2704; J3490 ×2; J7030; J7120 ×2; U0002; 00840; 80048; 96374; 99285-25; J0131; J2405; J3010; Q9967